=== PATIENT | male | born 1965 | race American Indian/Alaskan Native ===

== ENCOUNTER 2018-12-19 12:25 | Emergency (ER) | payer MEDICAID, OTHER ==
[2018-12-19 12:36] VITALS: BP 120/77; PULSE 58; RESP 20; TEMP 98.2; O2SAT 99
[2018-12-19] MEDS ORDERED: Naproxen 550 mg Tab PO STA (13:05)
[2018-12-19] MEDS ORDERED: Naproxen 550 mg Tab PO ONE (13:13)
--- NOTE | 2018-12-19 14:04 | RAD ---
Date of service: 12/19/2018 PROCEDURE: Left Knee Radiographs. HISTORY: Pain. COMPARISON: None. FINDINGS: BONES: There is mild medial translation of the medial and lateral femoral condyles. There is periarticular bone demineralization. There is no acute displaced fracture or bone destruction. JOINTS: There is severe tricompartmental degenerative osteoarthrosis with reduced joint spaces, marginal osteophytes and tibial spiking, worse in the medial compartment. JOINT EFFUSION: There is a moderate suprapatellar joint effusion. OTHER FINDINGS: None. IMPRESSION: Moderate tricompartmental degenerative osteoarthrosis, worse in the medial compartment. Moderate suprapatellar joint effusion.
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
== END 2018-12-19 14:36 | disposition home or self-care (01) ==
LOC: C.ER 12:25
DX: M17.12 Unilateral primary osteoarthritis, left knee (principal)

== ENCOUNTER 2019-01-06 10:56 | Emergency (ER) | payer MEDICAID, OTHER ==
[2019-01-06 11:00] VITALS: BMI 25.6
[2019-01-06 11:10] VITALS: TEMP 98.5; O2SAT 97
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
[2019-01-06 12:57] LABS: BASO % 1.1 % (0.0-2.0); EOS # 0.1 K/uL (0.0-0.7); HEMOGLOBIN 13.8 g/dL (12.0-18.0); LYMPH # 1.6 K/uL (1.0-4.3); MEAN CELL VOLUME 90.7 fL (80.0-94.0); MEAN CORPUSCULAR HEMOGLOBIN 29.6 pg (27.0-31.0); MEAN CORPUSCULAR HGB CONC 32.6 g/dL (33.0-37.0); MEAN PLATELET VOLUME 7.6 fL (7.2-11.7); MONO # 0.4 K/uL (0.0-0.8); MONO % 10.6 % (0.0-10.0); NEUT % 48.3 % (50.0-75.0); NRBC % 0.1 % (0.0-2.0); RBC 4.65 Mil/uL (4.40-5.90); RED CELL DISTRIBUTION WIDTH 14.5 % (11.5-14.5); WHITE BLOOD COUNT 4.2 K/uL (4.8-10.8)
[2019-01-06 13:10] LABS: ALB/GLOB RATIO 1.6 (1.0-2.1); ALBUMIN 4.3 g/dL (3.5-5.0); ALT/SGPT 21 U/L (21-72); AST/SGOT 43 U/L (17-59); BLOOD UREA NITROGEN 15 mg/dL (9-20); CALCIUM 9.3 mg/dl (8.6-10.4); GFR NON-AFRICAN AMERICAN > 60
[2019-01-06 13:22] LABS: B-TYPE NATRIURETIC PEPTIDE 70.3 pg/mL (0-900)
--- NOTE | 2019-01-06 13:26 | RAD ---
HISTORY: chest pain COMPARISON: None available. TECHNIQUE: Chest, one view. FINDINGS: LUNGS: No focal consolidation. Please note that chest x-ray has limited sensitivity for the detection of pulmonary masses. PLEURA: No significant pleural effusion identified. No definite pneumothorax. CARDIOVASCULAR: Heart size appears within normal limits. Atherosclerotic calcifications of the aortic knob. OSSEOUS STRUCTURES: No acute osseous abnormality identified. VISUALIZED UPPER ABDOMEN: Unremarkable. OTHER FINDINGS: None. IMPRESSION: No acute findings identified.
[2019-01-06 13:34] LABS: URINE BILIRUBIN NEGATIVE (NEGATIVE); URINE BLOOD NEGATIVE (NEGATIVE); URINE CLARITY Clear (Clear); URINE COLOR Yellow (YELLOW); URINE GLUCOSE (UA) NORMAL (Normal); URINE LEUKOCYTE ESTERASE NEG Leu/uL (Negative); URINE PROTEIN NEGATIVE (NEGATIVE)
[2019-01-06 14:01] VITALS: BP 119/71; PULSE 56; RESP 20
[2019-01-06 14:02] LABS: OPIATES, UR NEGATIVE (NEGATIVE); PHENCYCLIDINE, UR NEGATIVE (NEGATIVE)
[2019-01-06 14:08] LABS: BARBITURATES, UR NEGATIVE (NEGATIVE); BENZODIAZEPINES, UR NEGATIVE (NEGATIVE)
--- NOTE | 2019-01-08 06:39 | CARD ---
APPROVED REPORT Date of service: 01/06/2019 EKG Measurement Heart [id number] <Conclusion> Sinus bradycardia Otherwise normal ECG
== END 2019-01-06 14:09 | disposition home or self-care (01) ==
LOC: C.ER 10:56
DX: I10 Essential (primary) hypertension (principal)

== ENCOUNTER 2019-03-04 11:43 | Emergency (ER) | payer MEDICAID, OTHER ==
[2019-03-04 11:43] VITALS: BMI 25.6
[2019-03-04 11:53] VITALS: BP 125/60; PULSE 56; RESP 18; TEMP 98.6; O2SAT 97
[2019-03-04] MEDS ORDERED: Lidocaine 5% Patch TD STA (12:20)
[2019-03-04] MEDS ORDERED: Lidocaine 5% Patch TD ONE (12:34)
--- NOTE | 2019-03-04 13:04 | C.PDOC ---
History Of Present Illness 53 year old male presents to the emergency department with complaints of right shoulder pain for the last two days. Patient states that he noticed that the pain is worse while he is at work. 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 Patient believes that he might have injured himself while working. He quantifies his pain as 8/10 in severity, limited to the right shoulder, non-radiating, aching, and worse with movement. He denies other in juries, weakness, numbness, and tingling. Chief Complaint (Nursing): Upper Extremity Problem/Injury History Per: Patient History/Exam Limitations: no limitations Onset/Duration Of Symptoms: Days (2) Current Symptoms Are (Timing): Still Present Quality: Aching, "Pain" Pain Scale Rating Of: 8 Exacerbating Factor(s): Movement Past Medical History Reviewed: Historical Data, Nursing Documentation, Vital Signs Vital Signs: Last Vital Signs Temp 98.6 F 03/04/19 11:50 Pulse 56 L 03/04/19 11:50 Resp 18 03/04/19 11:50 BP 125/60 03/04/19 11:50 Pulse Ox 97 03/04/19 11:50 Primary Care Provider: FAMILY PROVIDER,NO - Medical History PMH: No Chronic Diseases Surgical History: No Surg Hx Family History: States: No Known Family Hx - Social History Hx Tobacco Use: No Hx Alcohol Use: Yes Hx Substance Use: No - Immunization History Hx Tetanus Toxoid Vaccination: No Hx Influenza Vaccination: No Hx Pneumococcal Vaccination: No Review Of Systems Constitutional: Negative for: Fever, Chills, Weakness Cardiovascular: Negative for: Chest Pain Respiratory: Negative for: Cough, Shortness of Breath Gastrointestinal: Negative for: Vomiting, Abdominal Pain, Diarrhea Musculoskeletal: Positive for: Shoulder Pain (right) Skin: Negative for: Rash, Bruising Neurological: Negative for: Weakness, Numbness, Headache, Dizziness Physical Exam - Physical Exam Appears: Non-toxic, No Acute Distress Skin: Normal Color, Warm, Dry, No Ecchymosis, No Other (erythema) Head: Atraumatic, Normacephalic Eye(s): bilateral: Normal Inspection Neck: Normal, Supple Chest: Symmetrical, No Tenderness Cardiovascular: Rhythm Regular Respiratory: Normal Breath Sounds, No Wheezing Extremity: No Normal ROM (limited ROM due to pain at the right shoulder), Tenderness (tenderness to palpation at right shoulder), Capillary Refill <2 Sec, No Deformity, Swelling (slight edema to the posterior right shoulder) Pulses: Left Brachial: Normal, Right Brachial: Normal Neurological/Psych: Oriented x3, Normal Speech, Normal Cognition, Normal Motor, Normal Sensation Gait: Steady ED Course And Treatment O2 Sat by Pulse Oximetry: 97 (RA) Pulse Ox Interpretation: Normal - Other Rad XR Right Shoulder X-Ray: Viewed By Me, Read By Radiologist Interpretation: Date of service: 03/04/2019. PROCEDURE: Radiographs of the Right Shoulder. HISTORY: Pain. COMPARISON: No prior. TECHNIQUE: 3 views obtained. FINDINGS: BONES: Normal. No fracture. JOINTS: Mild degenerative osteoarthritis right acromioclavicular and glenohumeral joints. SOFT TISSUES: Normal. OTHER FINDINGS: None. IMPRESSION: No acute fractures. Mild degenerative osteoarthritis right acromioclavicular and glenohumeral joints. Medical Decision Making Medical Decision Making: Plan: Flexeril 10mg PO Lidoderm Patch Toradol 60mg IM XR Right Shoulder -No acute fractures. Mild degenerative osteoarthritis right acromioclavicular and glenohumeral joints. D/w patient results and advised follow up with PMD if pain persists patient is stable for discharge Disposition Counseled Patient/Family Regarding: Studies Performed, Diagnosis, Need For Followup, Rx Given - Disposition Referrals: [facility] at [Outside] [facility] [Outside] Disposition: HOME/ ROUTINE Disposition Time: 13:04 Condition: STABLE Additional Instructions: Continue meds as prescribed Rest, Ice, and Elevation Follow up with PMD or Orthopedist for further evaluation and possible MRI Return to ED if symptoms worsen Prescriptions: Cyclobenzaprine [Flexeril] 10 mg PO TID PRN #15 tab PRN Reason: Muscle Spasm Lidocaine 5% [Lidoderm] 1 ea TD DAILY PRN #14 patch PRN Reason: Pain, Moderate (4-7) Naproxen [Naprosyn] 500 mg PO BID #30 tablet Instructions: Shoulder Pain (DC) Forms: [facility] (Burkinan), Work Excuse - Clinical Impression Clinical Impression: Right shoulder pain - 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 - Scribe Statement The provider has reviewed the documentation as recorded by the Scribe (Jonh Matute) All medical record entries made by the Scribe were at my direction and personally dictated by me. I have reviewed the chart and agree that the record accurately reflects my personal performance of the history, physical exam, medical decision making, and the department course for this patient. I have also personally directed, reviewed, and agree with the discharge instructions and disposition.
--- NOTE | 2019-03-04 13:30 | RAD ---
Date of service: 03/04/2019 PROCEDURE: Radiographs of the Right Shoulder HISTORY: Pain COMPARISON: No prior. TECHNIQUE: 3 views obtained. FINDINGS: BONES: Normal. No fracture. JOINTS: Mild degenerative osteoarthritis right acromioclavicular and glenohumeral joints. SOFT TISSUES: Normal. OTHER FINDINGS: None. IMPRESSION: No acute fractures. Mild degenerative osteoarthritis right acromioclavicular and glenohumeral joints.
== END 2019-03-04 13:24 | disposition home or self-care (01) ==
LOC: C.ER 11:43
DX: M25.511 Pain in right shoulder (principal)
CPT/HCPCS: 73030; 96372; 99284; J1885